=== PATIENT | female | born 1970 | race Two or more races ===

== ENCOUNTER 2019-11-24 18:52 | Emergency (ER) | payer MEDICAID ==
[~2019-11-24] VITALS: Ht 167.6 cm; Wt 80.7 kg
[2019-11-24 19:02] VITALS: BP 152/88
== END 2019-11-24 20:59 | disposition home or self-care (01) ==
LOC: ER 18:55
DX: S93.402A Sprain of unspecified ligament of left ankle, initial encounter (principal); F17.210 Nicotine dependence, cigarettes, uncomplicated; W18.39XA Other fall on same level, initial encounter; Y93.89 Activity, other specified; Y92.89 Other specified places as the place of occurrence of the external cause; Y99.8 Other external cause status
CPT/HCPCS: 73610

== ENCOUNTER 2024-08-27 11:22 | Emergency (ER) | payer MEDICAID ==
[~2024-08-27] VITALS: Ht 167.6 cm; Wt 88.3 kg
[2024-08-27 11:56] LABS: Basophils # (auto) 0 10 ^3/uL (0-0.2); Basophils % (auto) 0.7 % (0.0-2.0); Eosinophils # (auto) 0.1 10 ^3/uL (0-0.8); Eosinophils % (auto) 1.3 % (0.0-7.0); Hematocrit 43.4 % (36.0-46.0); Hemoglobin 14.8 g/dL (12.2-16.2); Lymphocytes # (auto) 2.7 10 ^3/uL (0.4-5.4); Lymphocytes % (auto) 43.3 % (10.0-50.0); Mean Corpuscular Hemoglobin 29.2 pg (28.0-32.0); Mean Corpuscular Volume 85.8 fL (80.0-100.0); Monocytes # (auto) 0.3 10 ^3/uL (0-1.3); Monocytes % (auto) 4.7 % (0.0-12.0); Neutrophils # (auto) 3.1 10 ^3/uL (1.6-8.6); Nucleated Red Blood Cells % 0.1 %; Platelet Count (auto) 370 10^3/uL (140-450); Red Blood Cells 5.06 10^6/uL (4.0-5.20); Red Cell Distribution Width 13.6 % (11.8-14.3); White Blood Cell 6.2 10^3/uL (4.4-10.8)
[2024-08-27 12:02] LABS: Potassium 4.5 mmol/L (3.5-5.1); Sodium 142 mmol/L (136-145)
[2024-08-27 12:03] LABS: Anion Gap 5 (5-15); Carbon Dioxide 26 mmol/L (20-31)
[2024-08-27 12:04] LABS: Calcium 9.6 mg/dL (8.7-10.4)
[2024-08-27 12:08] LABS: Glucose 99 mg/dL (74-106)
[2024-08-27 12:09] LABS: BUN/Creatinine Ratio 12.7 (10.0-20.0); Blood Urea Nitrogen 9 mg/dL (9-23)
--- NOTE | 2024-08-27 12:09 | ED.PDOC ---
HPI Comments A 54 year old female presents to the ED with a chief complaint of heart palpitations onset 1 day. Patient states she donated plasma yesterday and a few hours later she began experiencing heart palpitations, shortness of breath with chest tightness. Patient also states she takes baby Aspirin daily. She has a past medical history of HTN, anxiety and denies nausea, vomiting, diarrhea, abdominal pain, headache, dizziness. No other symptoms or modifying factors present at this time. Chief Complaint: Palpitations Time Seen by MD: 11:37 Primary Care Provider: EARNESTINE Wilson Notes: Medications, Allergies Allergies: Coded Allergies: NO KNOWN ALLERGIES (Unverified , 11/24/19) Information Source: Patient Mode of Arrival: Ambulatory Severity: Moderate Timing: Days Duration: Since onset Prehospital treatment: None Quality: Tightness Cardiac Risk Factors: Smoker, HTN PE Risk Factors: None History of: Aspirin (baby aspirin ) Associated Signs and Symptoms: SOB, Palpitations Past Medical History PAST MEDICAL HISTORY: Anxiety, HTN Surgical History: Cholecystectomy Surgical History (Other): breast augmentation, Lt ankle surgery ANIMAL DAMAGE CONTROL AGENT History: No Pertinent ANIMAL DAMAGE CONTROL AGENT History Family History Family History: Reviewed,noncontributory to illness Social History Smoker: Cigarettes Alcohol: Occasionally Drugs: Denies Drug Use Lives In: Home Constitutional: denies: chills, diaphoresis, fatigue, fever, malaise, sweats, weakness, others EENTM: denies: blurred vision, double vision, ear bleeding, ear discharge, ear drainage, ear pain, ear ringing, eye pain, eye redness, hearing loss, mouth pain, mouth swelling, nasal discharge, nose bleeding, nose congestion, nose pain, photophobia, tearing, throat pain, throat swelling, voice changes, others Respiratory: reports: shortness of breath; denies: cough, hemoptysis, orthopnea, SOB at rest, SOB with excertion, stridor, wheezing, others Cardiovascular: reports: palpitations, others (chest tightness); denies: chest pain, dizzy spells, diaphoresis, Dyspnea on exertion, edema, irregular heart beat, left arm pain, lightheadedness, PND, syncope Gastrointestinal: denies: abdomen distended, abdominal pain, blood streaked bowels, constipated, diarrhea, dysphagia, difficulty swallowing, hematemesis, melena, nausea, poor appetite, poor fluid intake, rectal bleeding, rectal pain, vomiting, others Genitourinary: denies: abnormal vagina bleeding, burning, dyspareunia, dysuria, flank pain, frequency, hematuria, incontinence, pain, , vagina discharge, urgency, others Neurological: denies: dizziness, fainting, headache, left sided numbness, left sided weakness, numbness, paresthesia, pre-existing deficit, right sided numbness, right sided weakness, seizure, speech problems, tingling, tremors, weakness, others Musculoskeletal: denies: back pain, gout, joint pain, joint swelling, muscle pain, muscle stiffness, neck pain, others Integumetry: denies: bruises, change in color, change in hair/nails, dryness, laceration, lesions, lumps, rash, wounds, others Allergic/Immunocompromised: denies: Difficulty Healing, Frequent Infections, Hives, Itching, others Hematologic/Lymphatic: denies: anemia, blood clots, easy bleeding, easy bruising, swollen glands, others Endocrine: denies: excessive hunger, excessive sweating, excessive thirst, excessive urination, flushing, intolerance to cold, intolerance to heat, unexplained weight gain, unexplained weight loss, others Psychiatric: denies: anxiety, bipolar disorder, depression, hopeless, panic disorder, schizophrenia, sleepless, suicidal, others All Other Systems: Reviewed and Negative Physical Exam General Appearance: No Apparent Distress, Obese HEENT: Other (Pupils symmetric, moist mucous membranes, no facial asymmetry) Neck: Full Range of Motion, Normal Inspection Respiratory: Lungs Clear, No Accessory Muscle Use, No Respiratory Distress, Normal Breath Sounds Cardiovascular: No Edema, No JVD, Regular Rate/Rhythm Breast Exam: Deferred Gastrointestinal: Non Tender, Soft Genitalia: Deferred Pelvic: Deferred Rectal: Deferred Extremities: Normal inspection, Normal range of motion, Non-tender, No pedal edema Neurologic: Alert (Oriented x4), No Motor Deficits, Normal Affect, Normal Mood, No Sensory Deficits Cerebellar Function: NOT DONE Reflexes: NOT DONE Skin: Dry, Normal Color, Warm Lymphatic: NOT DONE EKG EKG : Comments Sinus rhythm, rate 80, normal intervals, normal axis, normal QRS, nonspecific T changes. Was a procedure done? Was a procedure done?: No CP Differential Dx Differential Diagnosis: Anxiety / Panic Attack, Electrolyte Disorder, PR, Pulmonary Embolus, Other (Arrhythmia, hypovolemia, among others) Differential Diagnosis: CHF Differential Diagnosis: Angina, Chest Wall Pain, Pneumonia X-Ray, Labs, Meds, VS Vital Signs Date Time Temp Pulse Resp B/P (MAP) Pulse Ox O2 Delivery O2 Flow Rate FiO2 08/27/24 13:53 70 20 96 Room Air 08/27/24 13:53 98.2 70 20 142/84 (103) 96 98.2 08/27/24 11:40 98.2 75 17 157/90 (112) 96 Lab Test 08/27/24 11:40 Range/Units White Blood Count 6.2 4.4-10.8 10^3/uL Red Blood Count 5.06 4.0-5.20 10^6/uL Hemoglobin 14.8 12.2-16.2 g/dL Hematocrit 43.4 36.0-46.0 % Mean Corpuscular Volume 85.8 80.0-100.0 fL Mean Corpuscular Hemoglobin 29.2 28.0-32.0 pg Mean Corpuscular Hemoglobin Concent 34.0 32.0-36.0 g/dL Red Cell Distribution Width 13.6 11.8-14.3 % Platelet Count 370 140-450 10^3/uL Mean Platelet Volume 8.8 6.9-10.8 fL Neutrophils (%) (Auto) 50.0 37.0-80.0 % Lymphocytes (%) (Auto) 43.3 10.0-50.0 % Monocytes (%) (Auto) 4.7 0.0-12.0 % Eosinophils (%) (Auto) 1.3 0.0-7.0 % Basophils (%) (Auto) 0.7 0.0-2.0 % Neutrophils # (Auto) 3.1 1.6-8.6 10 ^3/uL Lymphocytes # (Auto) 2.7 0.4-5.4 10 ^3/uL Monocytes # (Auto) 0.3 0-1.3 10 ^3/uL Eosinophils # (Auto) 0.1 0-0.8 10 ^3/uL Basophils # (Auto) 0 0-0.2 10 ^3/uL Nucleated Red Blood Cells 0.1 % Sodium Level 142 136-145 mmol/L Potassium Level 4.5 3.5-5.1 mmol/L Chloride Level 111 H 98-107 mmol/L Carbon Dioxide Level 26 20-31 mmol/L Anion Gap 5 5-15 Blood Urea Nitrogen 9 9-23 mg/dL Creatinine 0.71 0.550-1.02 mg/dL Glomerular Filtration Rate Calc 100 >90 mL/min BUN/Creatinine Ratio 12.7 10.0-20.0 Serum Glucose 99 74-106 mg/dL Calcium Level 9.6 8.7-10.4 mg/dL Troponin I High Sensitivity < 3 L </=34 ng/L B-Type Natriuretic Peptide 71.93 0-100 pg/mL PROCEDURE(s): CXRP - CHEST PORTABLE REASON: palpitations ORDER NUMBER(s): [id number], ACCESSION NUMBER(s): [id number] CHEST RADIOGRAPH Indication: palpitations Technique: Single frontal view of the chest was obtained COMPARISON: None FINDINGS: Lines and Tubes: None Lungs: Clear Pleura: No effusion. No pneumothorax. Cardiomediastinal contours: Unremarkable Bones: Unremarkable IMPRESSION: 1. No acute disease. X-Ray, Labs, Meds, VS Comment 54-year-old female with history of hypertension and anxiety complaining of pal pitations after donating plasma. Patient denies chest pain. Vitals remarkable for BP 157/90 Exam unremarkable Rhythm strip independently interpreted by me: Sinus rhythm, rate 80, no ectopy. Chest x-ray acute disease CBC, basic metabolic panel, BNP and troponin unremarkable for any abnormality of acute significance Patient treated with the following in the ED: 1 L 0.9 normal saline IV bolus On re-evaluation, patient is resting comfortably with stable vitals. No arrhythmia has been noted during her stay here. Prior records were reviewed. Patient was seen here in November of 2019 for ankle pain. Hospitalization was considered, however patient was asymptomatic on re- evaluation, there was no noted arrhythmia during her stay in the ED, and workup was otherwise unremarkable. Patient appears stable for outpatient follow-up with her primary physician for referral to a pool cleaner. Time of 1ST Reevaluation: 12:07 Reevaluation 1ST: Unchanged Patient Education/Counseling: Diagnosis, Treatment, Prognosis Family Education/Counseling: No Family Present Additional Information HI Data VOL/Complexity Ordered tests: LAB, XY, EKG reviewed results: CBC, TROP, TROP, TROP, BNP, UA, BMP Interpreted results: XT, EKG Discuss tx/ results: patient, medical personnel Departure 1 Departure Time of Disposition: 13:22 Impression: Primary Impression: Palpitations Disposition: HOME / SELF CARE / HOMELESS Condition: Stable Additional Instructions: Your blood tests, including heart tests, were unremarkable. Your EKG was normal. Your chest x-ray was normal. Palpitations may be due to volume depletion from donating plasma. We have given IV fluids in the ER. Follow-up with your primary doctor in 1-2 days for referral to a pool cleaner for further evaluation. Return to ER for persistent or worsening symptoms. Discharged With: Self Critical Care Note Critical Care Time?: No Stability Stability form required: No Heart Score Heart Score: Heart Score Response (Comments) Value History Slightly Suspicious 0 EKG Repolarization Disturb 1 Age 45-64 1 Risk Factors 1 or 2 risk factors 1 Troponin Normal limit 0 Total 3 I personally scribed for KARL HAYS MD ([email or web address]) on 08/27/24 at 12:09. Electronically submitted by eRma Bellamy ([email or web address]). I personally scribed for KARL HAYS MD ([email or web address]) on 08/27/24 at 12:46. Electronically submitted by Rema Bellamy ([email or web address]). KARL HAYS MD Aug 27, 2024 12:09
[2024-08-27 12:11] LABS: Chloride 111 mmol/L (98-107)
--- NOTE | 2024-08-27 12:34 | DVH ---
CHEST RADIOGRAPH Indication: palpitations Technique: Single frontal view of the chest was obtained COMPARISON: None FINDINGS: Lines and Tubes: None Lungs: Clear Pleura: No effusion. No pneumothorax. Cardiomediastinal contours: Unremarkable Bones: Unremarkable IMPRESSION: 1. No acute disease.
[2024-08-27 13:53] VITALS: BP 142/84; PULSE 70; RESP 20; TEMP 98.2; O2SAT 96
[2024-08-27] MEDS: SODIUM CHLORIDE 0.9% 1,000 ML IV ONE (14:28)
--- NOTE | 2024-08-29 06:45 | ECG ---
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
== END 2024-08-27 15:11 | disposition home or self-care (01) ==
LOC: ER 11:22
DX: R00.2 Palpitations (principal); R07.89 Other chest pain; I10 Essential (primary) hypertension; F17.210 Nicotine dependence, cigarettes, uncomplicated; R94.31 Abnormal electrocardiogram [ECG] [EKG]; Z79.82 Long term (current) use of aspirin; Z90.49 Acquired absence of other specified parts of digestive tract
CPT/HCPCS: 36415; 71045; 80048; 83880; 84484; 85025; 93005; 96360; 99285; J7030